=== PATIENT | female | born 1960 ===

== ENCOUNTER 2024-02-19 16:29 | Outpatient (BNV) | payer MEDICARE, MEDICAID, SELFPAY | END 2024-02-20 | PROVIDERS: Admitting Provider Psychiatry & Neurology Psychiatry; Visit Provider Internal Medicine Cardiovascular Disease | DX: I45.81 Long QT syndrome (principal) | CPT/HCPCS: 93010 ==

== ENCOUNTER 2024-02-19 16:29 | Inpatient (IN) | payer MEDICARE, MEDICAID, SELFPAY ==
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
[2024-02-19 16:54] VITALS: BP 153/86; PULSE 73; RESP 16; TEMP 36.8; O2SAT 99
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
[2024-02-19] MEDS: Loratadine 10 MG TABLET PO (20:54)
[2024-02-19] MEDS: OLANZapine 5 MG TABLET PO (20:54)
--- NOTE | 2024-02-20 | ECG_ITS ---
Test Reason : rule out QTc prolongation Blood Pressure : / mmHG Vent. Rate : 077 BPM Atrial Rate : 077 BPM P-R Int : 160 ms QRS Dur : 092 ms QT Int : 370 ms P-R-T Axes : -07 079 072 degrees QTc Int : 418 ms Normal sinus rhythm Normal ECG No previous ECGs available Referred By: Sybil Odonnell Electronically Signed By:ANTELMO CAMP MD
[2024-02-20] MEDS: Albuterol Sulfate 90 MCG 8 GM INHALER 2 PUFF INHALE ×4 (03:21→20:57)
[2024-02-20] MEDS: OLANZapine 2.5 MG TABLET PO ×2 (03:23→08:00)
[2024-02-20 08:00] VITALS: BP 152/71; PULSE 68; RESP 18; TEMP 36.6; O2SAT 96
[2024-02-20] MEDS: Fluticasone Propionate Nasal 16 GM SPRAY 1 SPRAY NOSTRIL-B (08:02)
[2024-02-20 09:38] LABS: Cholesterol 175 mg/dL (<200); HDL Cholesterol 74 mg/dL (>40); LDL Cholesterol Calculated 88 mg/dL (<100); Magnesium 2.3 mg/dL (1.6-2.6); Triglycerides 65 mg/dL (<150)
[2024-02-20 10:02] LABS: Free T4 (Free Thyroxine) 1.16 ng/dL (0.71-1.85); Thyroid Stimulating Hormone 1.47 uIU/mL (0.32-4.0)
[2024-02-20 12:36] LABS: Folate 11.2 ng/mL (> or = 4.0); Vitamin B12 718 pg/mL (200-900)
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
[2024-02-20 20:00] VITALS: BP 156/66; PULSE 87; TEMP 36.3; O2SAT 97
[2024-02-20] MEDS: Famotidine 20 MG TABLET PO (20:57)
[2024-02-20] MEDS: OLANZapine 5 MG TABLET PO (20:58)
[2024-02-20] MEDS: Loratadine 10 MG TABLET PO (20:58)
[2024-02-21 08:00] VITALS: BP 109/61; PULSE 78; RESP 18; TEMP 36.4; O2SAT 97
[2024-02-21] MEDS: Albuterol Sulfate 90 MCG 8 GM INHALER 2 PUFF INHALE (08:31)
[2024-02-21] MEDS: OLANZapine 2.5 MG TABLET PO (08:31)
[2024-02-21] MEDS: Fluticasone Propionate Nasal 16 GM SPRAY 1 SPRAY NOSTRIL-B (08:31)
[2024-02-21 20:00] VITALS: BP 138/65; PULSE 71; TEMP 36.3; O2SAT 98
[2024-02-21] MEDS: OLANZapine 5 MG TABLET PO (20:29)
[2024-02-21] MEDS: Loratadine 10 MG TABLET PO (20:29)
[2024-02-21] MEDS: Famotidine 20 MG TABLET PO (20:30)
[2024-02-21] MEDS: Acetaminophen 325 MG TABLET 650 MG PO (20:30)
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
[2024-02-22] MEDS: Fluticasone Propionate Nasal 16 GM SPRAY 1 SPRAY NOSTRIL-B (07:59)
[2024-02-22] MEDS: Albuterol Sulfate 90 MCG 8 GM INHALER 2 PUFF INHALE (07:59)
[2024-02-22] MEDS: OLANZapine 2.5 MG TABLET PO ×2 (07:59)
[2024-02-22 08:00] VITALS: BP 176/85; PULSE 81; RESP 20; TEMP 36.2; O2SAT 97
[2024-02-22 09:01] VITALS: BP 150/71; PULSE 71
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
--- NOTE | 2024-02-22 15:23 | PC.NURSE ---
Pt retracted her 3 day notice and form signed and witnessed. Notified appropriate persons.
[2024-02-22] MEDS: Acetaminophen 325 MG TABLET 650 MG PO ×2 (15:54→23:33)
--- NOTE | 2024-02-22 18:51 | PC.NURSE ---
Reached out to EMBRYOLOGY PROFESSOR Kailyn Garnett via [place] text about pt's request for lidocaine patch for her lower back pain. call center recruiter provider responded and will enter order. Will endorse to oncoming RN for follow up.
[2024-02-22 20:00] VITALS: BP 127/58; PULSE 77; RESP 18; TEMP 36.4; O2SAT 96
[2024-02-22] MEDS: Famotidine 20 MG TABLET PO (20:51)
[2024-02-22] MEDS: OLANZapine 10 MG TABLET PO (20:51)
[2024-02-22] MEDS: Lidocaine 4 % Patch ADH..PATCH 1 PATCH TRANSDERMA (20:51)
[2024-02-22] MEDS: Loratadine 10 MG TABLET PO (20:51)
[2024-02-23 08:00] VITALS: BP 121/59; PULSE 69; RESP 16; TEMP 36.4; O2SAT 96
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
[2024-02-23] MEDS: cefuroxime axetiL 250 MG TABLET PO ×2 (14:37→21:49)
[2024-02-23 20:00] VITALS: BP 143/64; PULSE 84; RESP 16; TEMP 36.4; O2SAT 98
[2024-02-23] MEDS: Famotidine 20 MG TABLET PO (21:50)
[2024-02-23] MEDS: Loratadine 10 MG TABLET PO (21:50)
[2024-02-23] MEDS: OLANZapine 10 MG TABLET 20 MG PO (21:50)
[2024-02-24 08:00] VITALS: BP 139/65; PULSE 64; RESP 20; TEMP 36.5; O2SAT 96
[2024-02-24] MEDS: Lidocaine 4 % Patch ADH..PATCH 1 PATCH TRANSDERMA (10:01)
[2024-02-24] MEDS: cefuroxime axetiL 250 MG TABLET PO ×2 (10:01→21:06)
[2024-02-24] MEDS: Fluticasone Propionate Nasal 16 GM SPRAY 1 SPRAY NOSTRIL-B (10:01)
[2024-02-24] MEDS: Acetaminophen 325 MG TABLET 650 MG PO ×2 (12:11→18:23)
[2024-02-24] MEDS: Magnesium Hydrox/Alum Hydrox 30 ML ORAL.SUSP PO (18:23)
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
[2024-02-24 20:00] VITALS: BP 119/63; PULSE 82; RESP 16; TEMP 36.9; O2SAT 97
[2024-02-24] MEDS: OLANZapine 10 MG TABLET 20 MG PO (21:05)
[2024-02-24] MEDS: Loratadine 10 MG TABLET PO (21:06)
[2024-02-24] MEDS: Famotidine 20 MG TABLET PO (21:06)
[2024-02-25] MEDS: cefuroxime axetiL 250 MG TABLET PO ×2 (10:16→21:28)
[2024-02-25] MEDS: Famotidine 20 MG TABLET PO ×2 (10:22→21:28)
[2024-02-25] MEDS: Fluticasone Propionate Nasal 16 GM SPRAY 1 SPRAY NOSTRIL-B (10:23)
--- NOTE | 2024-02-25 16:20 | MHC.RECOVSUP ---
? Reason for consult Recovery Support o Current location: [address] o Identified substance use concern: Alcohol - Support ? Intervention: o Community resources provided o Harm reduction discussion ? Plan: o <del>Referral</del> <del>to</del> <del>CCC</del> <del>o</del> <del>Bed</del> <del>search</del> <del>in</del> <del>progress</del> <del>to</del> <del>o</del> <del>Follow</del> <del>up</del> <del>tomorrow</del> <del>o</del> <del>Patient</del> <del>awaiting</del> <del>crisis</del> <del>evaluation</del> <del>o</del> <del>Patient</del> <del>to</del> <del>follow</del> <del>up</del> <del>with</del> <del>[facility]</del> <del>after</del> <del>discharge</del> ? Additional information: Met with Patient and we talked about Recovery And Harm reduction. We talked about Recovery Coaching and other resources. Patient stated that he would like a Pharmaceutical Service Representative.
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
[2024-02-25 20:00] VITALS: BP 137/63; PULSE 78; RESP 18; TEMP 36.4; O2SAT 96
[2024-02-25] MEDS: OLANZapine 10 MG TABLET 20 MG PO (21:28)
[2024-02-25] MEDS: Loratadine 10 MG TABLET PO (21:28)
[2024-02-26 08:16] VITALS: BP 116/62; PULSE 73; RESP 16; TEMP 36.4; O2SAT 97
[2024-02-26] MEDS: cefuroxime axetiL 250 MG TABLET PO ×2 (08:59→20:49)
[2024-02-26] MEDS: Famotidine 20 MG TABLET PO ×2 (08:59→20:49)
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
[2024-02-26 20:00] VITALS: PULSE 74; RESP 16; TEMP 35.9; O2SAT 94
[2024-02-26] MEDS: OLANZapine 7.5 MG TABLET 15 MG PO (20:48)
[2024-02-26] MEDS: Docusate Sodium 100 MG CAPSULE PO (20:49)
[2024-02-26] MEDS: Loratadine 10 MG TABLET PO (20:49)
[2024-02-27] MEDS: Acetaminophen 325 MG TABLET 650 MG PO ×2 (00:24→21:16)
[2024-02-27 08:06] VITALS: BP 124/62; PULSE 65; RESP 16; TEMP 36.7; O2SAT 97
[2024-02-27 09:39] LABS: MANUAL DIFF FLAG NO
[2024-02-27] MEDS: cefuroxime axetiL 250 MG TABLET PO ×2 (09:41→21:14)
[2024-02-27] MEDS: Famotidine 20 MG TABLET PO ×2 (09:41→21:14)
[2024-02-27 09:42] LABS: Basophils Percent Auto 0.8 % (0-2); Eosinophils Absolute Auto 0.2 X10*3/uL (0.0-0.4); Eosinophils Percent Auto 3.1 % (0-4); Hematocrit 41.6 % (37.0-47.0); Hemoglobin 13.6 g/dl (12.0-16.0); Imm Gran Abs Auto 0.01 X10*3/uL (0.00-0.03); Imm Gran Pct Auto 0.2 % (0.0-0.4); Lymphocytes Percent Auto 37.7 % (20-40); Mean Corpuscular HGB Conc 32.7 g/dl (31.0-35.0); Mean Corpuscular Hemoglobin 29.7 pg (27.0-33.0); Mean Corpuscular Volume 90.8 fL (80.0-98.0); Mean Platelet Volume 9.5 fL (9.4-12.3); Monocytes Absolute Auto 0.5 X10*3/uL (0.1-1.2); Neutrophils Absolute Auto 2.6 x10*3/uL (2.0-8.3); Neutrophils Percent Auto 49.2 % (45-73); Platelet Count 246 X10*3/uL (160-400); Red Blood Count 4.58 X10*6/uL (4.20-5.50); Red Cell Distribution Width 13.1 % (11.0-16.0); White Blood Count 5.2 X10*3/uL (4.8-10.8)
[2024-02-27 10:03] LABS: Estimated Average Glucose 108 mg/dL; Hemoglobin A1c % 5.4 % (<6.0)
[2024-02-27 10:11] LABS: Alanine Aminotransferase 18 U/L (0-31); Albumin Level 4.1 g/dL (3.5-5.0); Alkaline Phosphatase 89 U/L (39-117); Anion Gap 13 (12-20); Aspartate Amino Transferase 19 U/L (5-31); Bilirubin Total 0.3 mg/dL (0.0-1.0); Blood Urea Nitrogen 14 mg/dL (9-16); Calcium 10.1 mg/dL (8.4-10.2); Carbon Dioxide 27 mmol/L (22-29); Chloride 103 mmol/L (96-108); Estimated Glomerular Filt Rate > 60; Glucose Random 128 mg/dL (60-115); Sodium 139 mmol/L (135-145)
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
[2024-02-27 20:00] VITALS: BP 118/62; PULSE 74; TEMP 36.8; O2SAT 97
[2024-02-27] MEDS: Loratadine 10 MG TABLET PO (21:14)
[2024-02-27] MEDS: Docusate Sodium 100 MG CAPSULE PO (21:14)
[2024-02-27] MEDS: OLANZapine 7.5 MG TABLET 15 MG PO (21:14)
[2024-02-28 08:00] VITALS: BP 144/65; PULSE 61; RESP 16; TEMP 36.4; O2SAT 95
[2024-02-28] MEDS: Fluticasone Propionate Nasal 16 GM SPRAY 1 SPRAY NOSTRIL-B (08:15)
[2024-02-28] MEDS: cefuroxime axetiL 250 MG TABLET PO ×2 (08:15→20:29)
[2024-02-28] MEDS: Famotidine 20 MG TABLET PO ×2 (08:16→20:29)
[2024-02-28] MEDS: Acetaminophen 325 MG TABLET 650 MG PO ×2 (09:19→19:16)
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
[2024-02-28 20:00] VITALS: BP 144/76; PULSE 75; RESP 18; TEMP 36.4; O2SAT 97
[2024-02-28] MEDS: Loratadine 10 MG TABLET PO (20:29)
[2024-02-28] MEDS: Docusate Sodium 100 MG CAPSULE PO (20:29)
[2024-02-28] MEDS: OLANZapine 7.5 MG TABLET 15 MG PO (20:34)
--- NOTE | 2024-02-28 20:34 | PC.NURSE ---
Took 7.5 of scheduled zyprexa. Refused other 7.5mg.
[2024-02-29 07:59] VITALS: BP 130/67; PULSE 65; RESP 16; TEMP 36.3; O2SAT 96
[2024-02-29] MEDS: cefuroxime axetiL 250 MG TABLET PO ×2 (08:34→20:26)
[2024-02-29] MEDS: Fluticasone Propionate Nasal 16 GM SPRAY 1 SPRAY NOSTRIL-B (08:34)
[2024-02-29] MEDS: Famotidine 20 MG TABLET PO ×2 (08:36→20:26)
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
[2024-02-29 19:51] VITALS: BP 116/60; PULSE 74; RESP 18; TEMP 36.5; O2SAT 95
[2024-02-29] MEDS: Docusate Sodium 100 MG CAPSULE PO (20:26)
[2024-02-29] MEDS: Loratadine 10 MG TABLET PO (20:26)
[2024-02-29] MEDS: OLANZapine 7.5 MG TABLET PO (20:26)
[2024-02-29] MEDS: Acetaminophen 325 MG TABLET 650 MG PO (20:28)
[2024-03-01 08:00] VITALS: BP 118/75; PULSE 72; RESP 16; TEMP 36.4; O2SAT 96
[2024-03-01] MEDS: cefuroxime axetiL 250 MG TABLET PO ×2 (09:25→20:25)
[2024-03-01] MEDS: Famotidine 20 MG TABLET PO ×2 (09:25→20:25)
[2024-03-01] MEDS: Acetaminophen 325 MG TABLET 650 MG PO (09:26)
[2024-03-01] MEDS: Fluticasone Propionate Nasal 16 GM SPRAY 1 SPRAY NOSTRIL-B (09:27)
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
[2024-03-01 20:00] VITALS: BP 113/59; PULSE 68; RESP 15; TEMP 36.7; O2SAT 95
[2024-03-01] MEDS: Loratadine 10 MG TABLET PO (20:25)
[2024-03-01] MEDS: Docusate Sodium 100 MG CAPSULE PO (20:25)
[2024-03-01] MEDS: OLANZapine 7.5 MG TABLET PO (20:25)
[2024-03-02 08:02] VITALS: BP 122/66; PULSE 72; RESP 16; TEMP 36.5; O2SAT 100
[2024-03-02] MEDS: Famotidine 20 MG TABLET PO (09:14)
[2024-03-02] MEDS: cefuroxime axetiL 250 MG TABLET PO (09:14)
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
== END 2024-03-02 11:30 | disposition home or self-care (01) | DRG 885 ==
PROVIDERS: Admitting Provider Psychiatry & Neurology Psychiatry; Visit Provider Clinical Nurse Specialist Psychiatric/Mental Health, Adult
DX: F25.1 Schizoaffective disorder, depressive type (principal); J45.909 Unspecified asthma, uncomplicated; M19.90 Unspecified osteoarthritis, unspecified site; Z23 Encounter for immunization; Z79.51 Long term (current) use of inhaled steroids; Z79.899 Other long term (current) drug therapy
CPT/HCPCS: 36415; 70110; 70140; 80053; 80061; 82607; 82746; 83036; 83735; 84439; 84443; 85025; 87086; 90471; 90686; 93005

== ENCOUNTER → 2024-02-19 16:29 | Outpatient (BNV) | payer MEDICARE, MEDICAID, SELFPAY | PROVIDERS: Admitting Provider Psychiatry & Neurology Psychiatry; Visit Provider Clinical Nurse Specialist Psychiatric/Mental Health, Adult | DX: F25.0 Schizoaffective disorder, bipolar type (principal) | CPT/HCPCS: 90792; 99231; 99232; 99238 ==

== ENCOUNTER → 2024-02-19 16:29 | Outpatient (BNV) | payer MEDICARE, MEDICAID, SELFPAY | PROVIDERS: Admitting Provider Psychiatry & Neurology Psychiatry; Visit Provider Student in an Organized Health Care Education/Training Program | DX: Z02.2 Encounter for examination for admission to residential institution (principal) | CPT/HCPCS: 99429 ==